=== PATIENT | female | born 1995 | race Caucasian/White ===

== ENCOUNTER 2017-06-28 13:42 | Emergency (ER) | payer OTHER ==
[~2017-06-28] VITALS: Ht 152.4 cm; Wt 68.5 kg
[~2017-06-28 13:42] MED LIST: IBUP800T25 PO; LORA10CA PO
[2017-06-28 13:55] VITALS: Ht 152.4 cm; Wt 68.5 kg
[2017-06-28] MEDS ORDERED: AMOX1TAB9 PO (14:28)
[2017-06-28] MEDS ORDERED: DIPHTH/TET/ACEL PERTUSS (ADULT) 0.5 ML VIAL IM* ONE (14:30)
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
== END 2017-06-28 15:32 | disposition home or self-care (01) ==
LOC: FTE 13:42
DX: S01.552A Open bite of oral cavity, initial encounter (principal); W50.3XXA Accidental bite by another person, initial encounter; Y92.9 Unspecified place or not applicable; Z23 Encounter for immunization
CPT/HCPCS: 90471; 90715; Z7502